=== PATIENT | male | born 1975 | race Caucasian/White ===

== ENCOUNTER 2022-08-09 16:54 | Emergency (ER) | payer MEDICAID, SELFPAY ==
[2022-08-09 18:06] VITALS: BP 117/74; PULSE 61; RESP 16; TEMP 36.5; O2SAT 98; BMI 22.4
--- NOTE | 2022-08-09 18:48 | ED_ITS ---
HPI - General Adult General Chief complaint: Skin/Abscess/Foreign Body Stated complaint: Jaw Infection Time Seen by Provider: 08/09/22 18:30 History of Present Illness HPI narrative: 47-year-old man presenting to the emergency department with complaint of left- sided head and jaw pain. Two months ago had wisdom teeth extraction of bilateral lower teeth. Already had upper wisdom teeth extracted when he was young. This was a prolonged and complicated extraction particularly on the left side. His jaw his clicked ever since this procedure. Recently started to have increasing pain and swelling. And was seen in the dentist a couple of days ago initiated on amoxicillin. The swelling admittedly has gone down. Now he is feeling though sharp as if there is a sliver something sharp around the left posterior molar. Yesterday yawned somewhat and felt his jaw momentarily stick. Since that time pain is escalated tremendously regionally. Head is just throbbing. Dental area continues to hurt as well. Has been trying ibuprofen acetaminophen and just needs some sleep. He does have a follow-up appointment scheduled with his dentist the end of this coming week. They had wanted to send him to Oral surgery but apparently none available at this time. No drainage. No fever. Related Data Home Medications Medication Instructions Recorded Confirmed amoxicillin 500 mg capsule 500 mg PO TID 08/09/22 08/09/22 Allergies Allergy/AdvReac Type Severity Reaction Status Date / Time No Known Drug Allergies Allergy Verified 08/09/22 18:14 Review of Systems Status of ROS: Reports: 6 or more systems reviewed and unremarkable except as noted in History and below [facility] Social History Smoking Status: Current every day smoker What tobacco products do you use: cigarettes Years smoked: 5 Do you use any of these nicotine containing products: Vaping Products Second hand tobacco smoke exposure: No How often do you have a drink containing alcohol: never AUDIT-C Alcohol total score: 0 Non-prescribed substance use: marijuana (any form) service: No Exam Narrative: Exam Narrative: Calm. Seated in exam chair. Sharp spike new posterior left lower molar. Erosion of the gum in the area. Mild inflammatory change along the edge. Full/edematous buccal mucosa partially covering this erosion. It appears that this eroding gum is exposing sharp bony fragment? Cervical lymphadenopathy. No induration or erythema externally. Palpable click with opening and closing the jaw at the left TMJ. Painful to palpate. Neck is supple. Cranial nerves 2-12 intact. Moving all extremities without difficulty. Const: Vital Signs, click to edit/add: Vital Signs - 24 hr 08/09/22 18:06 08/09/22 21:08 Temperature 97.7 F 97.7 F Pulse Rate [Right Pulse Oximeter] 61 61 Respiratory Rate 16 16 Blood Pressure [Ri ght Upper Arm] 117/74 117/74 Pulse Oximetry 98 Oxygen Delivery Me thod Room Air Documenting provider has reviewed patient's vital signs: yes Course Course Hospital Course: I offered dental injection. He readily accepted. I think this will help regional pain. The regional pain though I think is more related to TMJ matters than maybe the dental pain. Given description prior he appears to be improving with antibiotics. I injected posterior lower jaw and then in a buccal block with Marcaine. This helped calm the pain a great deal before departure. Vital Signs Vital signs: Initial Vital Signs Temperature 97.7 F 08/09/22 18:06 Temperature Source Temporal Artery Scan 08/09/22 18:06 Pulse Rate 61 08/09/22 18:06 Respiratory Rate 16 08/09/22 18:06 Blood Pressure 117/74 08/09/22 18:06 Blood Pressure Mean 88 08/09/22 18:06 Blood Pressure Position Sitting 08/09/22 18:06 Pulse Oximetry 98 08/09/22 18:06 Oxygen Delivery Method 08/09/22 18:06 Vital Signs Temperature 97.7 F 08/09/22 18:06 Pulse Rate 61 08/09/22 18:06 Respiratory Rate 16 08/09/22 18:06 Blood Pressure 117/74 08/09/22 18:06 Pulse Oximetry 98 08/09/22 18:06 Oxygen Delivery Method 08/09/22 18:06 Temperature 97.7 F 08/09/22 21:08 Pulse Rate 61 08/09/22 21:08 Respiratory Rate 16 08/09/22 21:08 Blood Pressure 117/74 08/09/22 21:08 Pulse Oximetry 98 08/09/22 18:06 Oxygen Delivery Method 08/09/22 18:06 Discharge Plan Discharge Clinical Impression: Arthralgia of left temporomandibular joint, Pain, dental Patient Disposition: Home, Self-Care Condition: Stable Additional Instructions: Please follow up with your dentist as soon as possible. Continue to take your antibiotics. Focus on hydration. Ibuprofen. This can be combined with the prescribed medications tonight -- Nor co from [employer] You might inquire with your dentist about treating temporomandibular joint dysfunction. Temporarily could place [employer] putty to cover irritating area. Can usually purchase at [employer] and maybe [employer]. Prescriptions: No Action amoxicillin 500 mg capsule 500 mg PO TID Follow Up/Referrals: Aron Black MD [Primary Care Provider] - Stand Alone Forms: [employer] Info Instructions
[2022-08-09 21:08] VITALS: BP 117/74; PULSE 61; RESP 16; TEMP 36.5
== END 2022-08-09 20:45 | disposition home or self-care (01) ==
PROVIDERS: Emergency Provider Family Medicine; PCP Family Medicine
DX: M26.622 Arthralgia of left temporomandibular joint (principal)
CPT/HCPCS: 64450; 99283